=== PATIENT | male | born 1965 ===

== ENCOUNTER → 2017-06-08 07:07 | Outpatient (CLI) | payer OTHER | END | disposition home or self-care (01) | LOC: LAB 07:07 | DX: E11.65 Type 2 diabetes mellitus with hyperglycemia (principal) ==

== ENCOUNTER → 2017-08-10 06:52 | Outpatient (CLI) | payer OTHER | END | disposition home or self-care (01) | LOC: LAB 06:52 | DX: E78.2 Mixed hyperlipidemia (principal); E03.8 Other specified hypothyroidism; E11.65 Type 2 diabetes mellitus with hyperglycemia ==

== ENCOUNTER 2017-09-28 07:04 | Outpatient (CLI) | payer OTHER | END 2017-09-28 07:15 | disposition home or self-care (01) | LOC: LAB 07:04 | DX: E11.65 Type 2 diabetes mellitus with hyperglycemia (principal) ==

== ENCOUNTER 2017-12-05 07:20 | Outpatient (CLI) | payer OTHER | END 2017-12-05 07:29 | disposition home or self-care (01) | LOC: LAB 07:20 | DX: E78.00 Pure hypercholesterolemia, unspecified (principal); E11.65 Type 2 diabetes mellitus with hyperglycemia ==

== ENCOUNTER → 2018-02-01 06:45 | Outpatient (CLI) | payer OTHER | END | disposition home or self-care (01) | LOC: LAB 06:45 | DX: Z76.0 Encounter for issue of repeat prescription (principal); E11.9 Type 2 diabetes mellitus without complications; E78.4 Other hyperlipidemia ==

== ENCOUNTER 2018-02-08 08:48 | Outpatient (CLI) | payer OTHER | END 2018-02-08 09:02 | disposition home or self-care (01) | LOC: LAB 08:48 | DX: E78.49 Other hyperlipidemia (principal); Z76.0 Encounter for issue of repeat prescription; E11.9 Type 2 diabetes mellitus without complications ==

== ENCOUNTER 2018-03-22 07:47 | Outpatient (CLI) | payer OTHER | END 2018-03-22 07:52 | disposition home or self-care (01) | LOC: LAB 07:47 | DX: E11.9 Type 2 diabetes mellitus without complications (principal); E78.49 Other hyperlipidemia; Z12.11 Encounter for screening for malignant neoplasm of colon; Z12.5 Encounter for screening for malignant neoplasm of prostate ==

== ENCOUNTER 2018-03-29 06:42 | Outpatient (CLI) | payer OTHER | END 2018-03-29 06:50 | disposition home or self-care (01) | LOC: LAB 06:42 | DX: E11.00 Type 2 diabetes mellitus with hyperosmolarity without nonketotic hyperglycemic-hyperosmolar coma (NKHHC) (principal); Z12.11 Encounter for screening for malignant neoplasm of colon; Z12.5 Encounter for screening for malignant neoplasm of prostate; E78.49 Other hyperlipidemia ==

== ENCOUNTER → 2018-11-14 06:42 | Outpatient (CLI) | payer OTHER | END | disposition home or self-care (01) | LOC: LAB 06:42 | DX: E11.9 Type 2 diabetes mellitus without complications (principal); Z76.0 Encounter for issue of repeat prescription; E66.8 Other obesity; Z13.89 Encounter for screening for other disorder; Z12.11 Encounter for screening for malignant neoplasm of colon ==

== ENCOUNTER 2019-02-14 06:21 | Outpatient (CLI) | payer OTHER | END 2019-02-14 06:30 | disposition home or self-care (01) | LOC: LAB 06:21 | DX: E11.65 Type 2 diabetes mellitus with hyperglycemia (principal); E78.00 Pure hypercholesterolemia, unspecified ==

== ENCOUNTER 2019-05-02 06:39 | Outpatient (CLI) | payer OTHER | END 2019-05-02 06:44 | disposition home or self-care (01) | LOC: LAB 06:39 | DX: E78.49 Other hyperlipidemia (principal); I11.9 Hypertensive heart disease without heart failure ==

== ENCOUNTER → 2019-06-27 06:39 | Outpatient (CLI) | payer OTHER | END | disposition home or self-care (01) | LOC: LAB 06:39 | DX: E66.8 Other obesity (principal) ==